=== PATIENT | male | born 2005 | race Two or more races ===

== ENCOUNTER 2024-07-04 21:09 | Emergency (ER) | payer SELFPAY ==
[~2024-07-04] VITALS: Ht 188 cm; Wt 104.0 kg
[2024-07-05 03:01] VITALS: BP 118/78; TEMP 98.8; O2SAT 98
== END 2024-07-05 04:08 | disposition home or self-care (01) ==
LOC: M ED 21:09
DX: S06.0X0A Concussion without loss of consciousness, initial encounter (principal); S00.01XA Abrasion of scalp, initial encounter; W20.8XXA Other cause of strike by thrown, projected or falling object, initial encounter; Y92.009 Unspecified place in unspecified non-institutional (private) residence as the place of occurrence of the external cause; Y93.89 Activity, other specified; Y99.9 Unspecified external cause status